=== PATIENT | female | born 1945 | race Hispanic/Latino ===

== ENCOUNTER → 2017-08-06 | Outpatient (CLI) | payer OTHER | END | disposition home or self-care (01) | LOC: RAH 14:50 | PROVIDERS: ATTEND Family Medicine | DX: Z12.31 Encounter for screening mammogram for malignant neoplasm of breast (principal) | CPT/HCPCS: 77067 ==

== ENCOUNTER → 2019-10-01 | Outpatient (CLI) | payer OTHER | END | disposition home or self-care (01) | LOC: RAH 13:45 | PROVIDERS: ATTEND Family Medicine | DX: Z12.31 Encounter for screening mammogram for malignant neoplasm of breast (principal) | CPT/HCPCS: 77067 ==

== ENCOUNTER 2021-02-28 05:12 | Emergency (ER) | payer OTHER ==
[~2021-02-28] VITALS: Ht 154.9 cm; Wt 69.4 kg
[2021-02-28] MEDS ORDERED: PREDNISONE 20 MG TABLET PO STA (06:21)
[2021-02-28] MEDS ORDERED: PRED20TA3 PO (06:26)
[2021-02-28] MEDS ORDERED: TRAM-355 PO (06:26)
[2021-02-28] MEDS ORDERED: PREDNISONE 20 MG TABLET ONE (06:29)
[2021-02-28] MEDS ORDERED: TRAMADOL /APAP 37.5MG/325MG TAB PO ONE (06:30)
[2021-02-28] MEDS ORDERED: TRAMADOL HCL 50 MG TABLET ONE (06:30)
[2021-02-28 06:33] VITALS: BP 118/70
== END 2021-02-28 06:42 | disposition home or self-care (01) ==
LOC: EDH 05:12
DX: B02.9 Zoster without complications (principal); E11.9 Type 2 diabetes mellitus without complications; E78.00 Pure hypercholesterolemia, unspecified; I10 Essential (primary) hypertension

== ENCOUNTER → 2021-11-17 | Outpatient (CLI) | payer OTHER ==
[~2021-11-17] MED LIST: PRED20TA3 PO; TRAM-355 PO
== END | disposition home or self-care (01) ==
LOC: RAH 11:07
PROVIDERS: ATTEND Family Medicine
DX: Z12.31 Encounter for screening mammogram for malignant neoplasm of breast (principal)
CPT/HCPCS: 77067

== ENCOUNTER → 2023-07-10 | Outpatient (CLI) | payer OTHER | END | disposition home or self-care (01) | LOC: RAH 12:31 | PROVIDERS: ATTEND Physician Assistant Medical | DX: Z12.31 Encounter for screening mammogram for malignant neoplasm of breast (principal); R92.333 Mammographic heterogeneous density, bilateral breasts | CPT/HCPCS: 77067 ==

== ENCOUNTER → 2024-07-15 | Outpatient (CLI) | payer OTHER, MEDICARE ==
[~2024-07-15] MED LIST changes: -TRAM-355 PO; +TRAM-543 PO
--- NOTE | 2024-07-15 10:05 | HMCIMG ---
Exam Type: MAMMO SCREENING BILATERAL Clinical Information: ANNUAL SCREENING Comparison: July 10, 2023 Technique: Mammogram with CAD was performed with CC and MLO projections. CAD shows no worrisome regions. FINDINGS: The breasts are heterogeneously dense, which may obscure small masses. No dominant mass or suspicious microcalcification identified. There is no nipple retraction or skin thickening. Benign-appearing calcifications are seen. CAD shows no worrisome regions. IMPRESSION: 1. No mammographic signs of malignancy. 2. Routine follow-up recommended. CATEGORY 2: BENIGN FINDINGS Note: A negative x-ray should not delay biopsy if a dominant or clinically suspicious mass is present, since 8-10% of cancers are not identified by mammography. Dense breasts may obscure an underlying neoplasm.
== END | disposition home or self-care (01) ==
LOC: RAH 09:11
PROVIDERS: ATTEND Family Medicine
DX: Z12.31 Encounter for screening mammogram for malignant neoplasm of breast (principal); R92.333 Mammographic heterogeneous density, bilateral breasts; R92.1 Mammographic calcification found on diagnostic imaging of breast
CPT/HCPCS: 77067